=== PATIENT | female | born 1950 | race Caucasian/White ===

== ENCOUNTER 2019-04-04 12:19 | Emergency (ER) | payer MEDICARE, OTHER ==
[~2019-04-04 12:19] MED LIST: Nitroglycerin 0.4 MG TAB (25 Tab Bottle) ONE
[2019-04-04] MEDS ORDERED: Aspirin Chewable 81 MG TAB ONE (12:38)
[2019-04-04 12:52] LABS: #Basophils 0.2 thou/uL (0.0-0.2); #Eosinphils 0.1 thou/uL (0.0-0.7); #Lymphocytes 3.7 thou/uL (1.20-3.40); #Neutrophils 4.4 thou/uL (1.40-6.50); %Basophils 1.6 % (0.0-1.0); %Eosinophils 1.5 % (0.0-10.0); %Lymphocytes 39.3 % (21.0-51.0); %Monocytes 10.6 % (0.0-10.0); Hemoglobin 15.2 g/dL (12.0-16.0); Mean Corpuscular HGB CONC 31.5 g/dL (32.0-36.0); Mean Corpuscular Hemoglobin 28.9 pg (27.0-31.0); Mean Corpuscular Volume 91.9 fL (78.0-98.0); Mean Platelet Volume 7.9 fL (7.4-10.4); Platelet Count 375 thou/uL (130-400); RBC Distribution Width 12.3 % (11.5-14.5); Red Blood Cell (RBC) Count 5.24 mill/uL (4.20-5.40); White Blood Cell (WBC) Count 9.3 thou/uL (4.8-10.8)
[2019-04-04 13:00] LABS: ALT (SGPT) 35 U/L (8-55); AST (SGOT) 24 U/L (5-34); Albumin 4.1 g/dL (3.4-4.8); Alkaline Phosphatase 77 U/L (40-110); Anion Gap 13 mmol/L (10-20); BUN (Urea Nitrogen) 9 mg/dL (9.8-20.1); Bilirubin, Total 0.5 mg/dL (0.2-1.2); Calc. Creatinine Clearance 0 mL/min (70-130); Calcium 9.3 mg/dL (7.8-10.44); Carbon Dioxide 27 mmol/L (23-31); Chloride 103 mmol/L (98-107); Estimated GFR-MDRD 79; Globulin 3.7 g/dL (2.4-3.5); Glucose 98 mg/dL (80-115); Potassium 3.6 mmol/L (3.5-5.1); Protein, Total 7.8 g/dL (6.0-8.3); Sodium 139 mmol/L (136-145)
--- NOTE | 2019-04-04 20:02 | RAD ---
PORTABLE CHEST 04/04/19 An AP portable film at 1233 is presented with no prior films available for comparison. The heart is normal in size and the lungs are clear. There is no vascular congestion, edema, or pleur al effusion. The mediastinum appears normal. The trachea deviates to the left near the thoracic inlet. An obvious mass causing this is not seen, h owever, it might be instructed to do an exam of the neck and make sure that one does not feel a mass in the right lobe of the thyroid gland. The bony structures were unremarkable. IMPRESSION: 1. No acute cardiopulmonary findings. 2. Mild deviation of the trachea at the thoracic inlet. See above. Code T POS: HOME
== END 2019-04-04 13:34 | disposition home or self-care (01) ==
LOC: BURERS 12:19
DX: R07.89 Other chest pain (principal); J30.1 Allergic rhinitis due to pollen; F41.9 Anxiety disorder, unspecified; F32.9 Major depressive disorder, single episode, unspecified
CPT/HCPCS: 71045; 80053; 84484; 85025; 93005; 94760